=== PATIENT | female | born 1975 | race Caucasian/White ===

== ENCOUNTER → 2018-03-15 | Outpatient (REF) | LOC: M SMT 14:08 | DX: Z02.71 Encounter for disability determination (principal) ==

== ENCOUNTER → 2024-06-19 | Outpatient (REF) | LOC: M PLALAB 10:22 | PROVIDERS: ATTEND Internal Medicine | DX: M54.50 Low back pain, unspecified (principal); M25.551 Pain in right hip; M47.817 Spondylosis without myelopathy or radiculopathy, lumbosacral region ==